=== PATIENT | female | born 1970 | race Caucasian/White ===

== ENCOUNTER 2016-12-12 08:15 | Emergency (ER) | payer BC ==
[2016-12-12 08:19] VITALS: RESP 18; O2SAT 99
--- NOTE | 2016-12-12 08:32 | CPEKG ---
Heart Rate: 80 RR Interval: 750 P-R Interval: 144 QRSD Interval: 86 QT Interval: 356 QTC Interval: 411 P York: 15 QRS York: 56 T Wave York: 15 EKG Severity - NORMAL ECG - EKG Impression: SINUS RHYTHM Electronically Signed By: Julio César Snyder 13-Dec-2016 14:23:03
[2016-12-12 08:41] LABS: % IMMATURE GRANULYOCYTES 0.2 % (0.0-1.1); ABSOLUTE IMMATURE GRANULOCYTES 0.02 10^3/uL (0.00-0.10); ADD DIFF? NO; ADD MORPH? NO; ADD SCAN? NO; ATYPICAL LYMPHOCYTE FLAG 10 (0-99); FRAGMENT RBC FLAG 0 (0-99); HEMATOCRIT 48.8 % (38.0-47.0); HEMOGLOBIN 15.6 g/dL (12.6-16.3); LEFT SHIFT FLG 0 (0-99); LIPEMIA HEMOLYSIS FLAG 80 (0-99); MEAN CELL HEMOGLOBIN 25.2 pg (27.9-34.1); MEAN CELL VOLUME 78.7 fL (81.5-99.8); MEAN PLATELET VOLUME 9.5 fL (8.7-11.7); PLATELET CLUMPS FLAG 0 (0-99); PLATELET COUNT 312 10^3/uL (150-400)
--- NOTE | 2016-12-12 08:42 | EDPHY ---
H & P Time Seen by Provider: 12/12/16 08:33 HPI/ROS: CHIEF COMPLAINT: arm pain/chest pain HISTORY OF PRESENT ILLNESS: The patient is a 46-year-old female who presents to the emergency department with sudden onset of sharp left arm pain radiating to her left chest. Patient states she was sitting at her desk approximately 1 0.5 hours ago. She moves her left arm and developed sharp stabbing pain on the medial aspect of her left arm. This radiated to her left breast. It was worse with movement. It would resolve with rest. If she does not move her arm she does not have pain. She denies any arm swelling or numbness. No weakness. No recent injury. The patient denies any leg pain or swelling. No recent travel. The patient is not on hormone replacement therapy. The patient does smoke. No cough or shortness of breath. REVIEW OF SYSTEMS: My complete review of systems is negative except as mentioned in the HPI. Past Medical/Surgical History: Includes toxic shock syndrome Smoking Status: Current every day smoker Physical Exam: Vitals noted GENERAL: Well-appearing, in no acute distress, alert. HEENT: Eyes normal to inspection, normal pharynx, no signs of dehydration. NECK: No thyromegaly, no lymphadenopathy, supple. RESPIRATORY: Clear to auscultation bilaterally, no rales, rhonchi or wheezing. CVS: Regular rate and rhythm, no rubs, murmurs, or gallops. ABDOMEN: Soft, nontender, nondistended, no organomegaly. BACK: Normal to inspection, no CVA tenderness. SKIN: Normal color, no rash, warm, dry. No pallor. EXTREMITIES: patient left arm appears normal. There is no swelling. Patient has mild tenderness to palpation over the medial aspect of her left brachium. She also has tenderness palpation over her left lateral pectoralis major. There is no lesions. No rash. Neurovascularly intact distally. No pedal edema, no calf tenderness, no Homans sign or cords, no joint swelling. NEURO/PSYCH: Alert and oriented x3, normal mood and affect, normal motor sensory exam. No obvious cranial nerve deficit. Constitutional: Initial Vital Signs Temperature (C) 36.3 C 12/12/16 08:17 Heart Rate 92 12/12/16 08:17 Respiratory Rate 18 12/12/16 08:17 Blood Pressure 121/87 H 12/12/16 08:17 O2 Sat (%) 99 12/12/16 08:17 O2 Delivery Mode Room Air Allergies/Adverse Reactions: codeine Allergy (Verified 12/12/16 08:16) Home Medications: Medication Instructions Recorded NK [No Known Home Meds] 12/12/16 Medical Decision Making - Diagnostics Imaging Results: Imaging Impressions Chest X-Ray 12/12/16 08:52 Impression: No evidence of acute cardiopulmonary abnormality. ED Course/Re-evaluation: In the emergency department I discussed possible etiologies with the patient. I answered her questions. IV was placed. Laboratory studies, EKG and ultrasound of her left upper extremity were ordered. Patient was given aspirin 324 mg orally. The patient denies pain at this time. EKG shows normal sinus rhythm, normal rate, normal axis, normal intervals. There are no ST or T-wave abnormalities. EKG is normal as interpreted by me. I reviewed the patient's laboratory studies. Her chemistry, CBC and troponin were negative. Ultrasound left upper extremity: No acute disease noted. Please refer the dictated report by Dr. Indra Nichols. 2022: I discussed the results with the patient. I answered all her questions. Patient's pain still is focused with left arm movement. I do not feel this represents cardiac disease, dissection, PE or clot. I discussed warnings with the patient. I gave her warnings prior to leaving. She will return with worsening symptoms. Differential Diagnosis: My differential includes but is not limited to ACS, acute MT, pneumonia, pneumothorax, DVT, PE - Data Points Laboratory Results: Laboratory Results 12/12/16 08:30 12/12/16 08:30 12/12/16 12/12/16 12/12/16 08:30 08:30 08:30 WBC 9.00 10^3/uL 10^3/uL (3.80-9.50) RBC 6.20 10^6/uL H 10^6/uL (4.18-5.33) Hgb 15.6 g/dL g/dL (12.6-16.3) Hct 48.8 % H % (38.0-47.0) MCV 78.7 fL L fL (81.5-99.8) MCH 25.2 pg L pg (27.9-34.1) MCHC 32.0 g/dL L g/dL (32.4-36.7) RDW 16.0 % H % (11.5-15.2) Plt Count 312 10^3/uL 10^3/uL (150-400) MPV 9.5 fL fL (8.7-11.7) Neut % (Auto) 65.8 % % (39.3-74.2) Lymph % (Auto) 23.4 % % (15.0-45.0) Crane % (Auto) 6.2 % % (4.5-13.0) Eos % (Auto) 3.6 % % (0.6-7.6) Baso % (Auto) 0.8 % % (0.3-1.7) Nucleat RBC Rel Count 0.0 % % (0.0-0.2) Absolute Neuts (auto) 5.92 10^3/uL 10^3/uL (1.70-6.50) Absolute Lymphs (auto) 2.11 10^3/uL 10^3/uL (1.00-3.00) Absolute Monos (auto) 0.56 10^3/uL 10^3/uL (0.30-0.80) Absolute Eos (auto) 0.32 10^3/uL 10^3/uL (0.03-0.40) Absolute Basos (auto) 0.07 10^3/uL 10^3/uL (0.02-0.10) Absolute Nucleated RBC 0.00 10^3/uL 10^3/uL (0-0.01) Immature Gran % 0.2 % % (0.0-1.1) Immature Gran # 0.02 10^3/uL 10^3/uL (0.00-0.10) Sodium 141 mEq/L mEq/L (134-144) Potassium 4.3 mEq/L mEq/L (3.5-5.2) Chloride 105 mEq/L mEq/L (97-110) Carbon Dioxide 25 mEq/l mEq/l (22-31) Anion Gap 11 mEq/L mEq/L (8-16) BUN 15 mg/dL mg/dL (7-23) Creatinine 0.7 mg/dL mg/dL (0.6-1.0) Estimated GFR > 60 Glucose 88 mg/dL mg/dL (70-100) Calcium 9.2 mg/dL mg/dL (8.5-10.4) Troponin I < 0.012 ng/mL ng/mL (0-0.034) Beta HCG, Qual NEGATIVE Medications Given: Discontinued Medications Aspirin (Aspirin) 324 mg PO EDNOW ONE Stop: 12/12/16 08:52 Last Admin: 12/12/16 08:53 Dose: 324 mg Departure - Departure Disposition: Home, Routine, Self-Care Clinical Impression: Left arm pain Chest pain Qualifiers: Chest pain type: unspecified Qualified Code(s): R07.9 - Chest pain, unspecified Condition: Good Instructions: Chest Pain (ED), Arm Pain (ED) Additional Instructions: Return with increasing pain, shortness of breath, fever or any other concerns. Referrals: Timur Garner MD [Primary Care Provider] - 5-7 days, call for appt.
[2016-12-12] MEDS ORDERED: ASPIRIN 81 MG CHEWABLE TAB ONE (08:50)
[2016-12-12] MEDS ORDERED: ASPIRIN 81 MG CHEWABLE TAB PO ONE (08:51)
[2016-12-12 09:00] LABS: ANION GAP 11 mEq/L (8-16); CALCIUM 9.2 mg/dL (8.5-10.4); CARBON DIOXIDE 25 mEq/l (22-31); CHLORIDE 105 mEq/L (97-110); CREATININE 0.7 mg/dL (0.6-1.0); GLOMERULAR FILTRATION RATE > 60; GLUCOSE 88 mg/dL (70-100); POTASSIUM 4.3 mEq/L (3.5-5.2); SODIUM 141 mEq/L (134-144)
[2016-12-12 09:11] LABS: TROPONIN I < 0.012 ng/mL (0-0.034)
[2016-12-12 11:17] VITALS: BP 133/76; PULSE 69; TEMP 98.2
== END 2016-12-12 11:17 | disposition home or self-care (01) ==
DX: R07.9 Chest pain, unspecified (principal); F17.200 Nicotine dependence, unspecified, uncomplicated; M79.602 Pain in left arm

== ENCOUNTER 2017-03-27 09:45 | Inpatient (IN) | payer BC ==
[~2017-03-27 09:45] MED LIST: ROPIVACAINE 0.2% 80 MG, EPINEPHrine 0.2 MG, KETOROLAC TROMETHAMINE 30 MG in BAG 0 ML IU ONE; TRANEXAMIC ACID 3,000 MG in NS 50 ML IRR ONE; TRANEXAMIC ACID 3,000 MG/50 ML BAG IRR ONE
[2017-03-27] MEDS ORDERED: ceFAZolin 2 GM/DEXTROSE 100 ML IV ONE (12:06)
[2017-03-27] MEDS ORDERED: DEXAMETHASONE 4 MG/ML VIAL IVP ONE (12:06)
[2017-03-27] MEDS ORDERED: FAMOTIDINE 20 MG TAB PO ONE (12:06)
[2017-03-27] MEDS ORDERED: ACETAMINOPHEN 325 MG TAB PO ONE (12:06)
[2017-03-27] MEDS ORDERED: LR 1,000 ML IV ONE (12:17)
--- NOTE | 2017-03-27 13:40 | PDANEPAE ---
ANE History of Present Illness 46 yo F w OA here for R BEVERLEY ANE Past Medical History - Cardiovascular History Hx Hypertension: No Hx Arrhythmias: No Hx Chest Pain: No Hx Coronary Artery / Peripheral Vascular Disease: No Hx CHF / Valvular Disease: No Hx Palpitations: No - Pulmonary History Hx COPD: No Hx Asthma/Reactive Airway Disease: No Hx Recent Upper Respiratory Infection: No Hx Oxygen in Use at Home: No Hx Sleep Apnea: No Sleep Apnea Screening Result - Last Documented: Negative - Neurologic History Hx Cerebrovascular Accident: No Hx Seizures: No Hx Dementia: No - Endocrine History Hx Diabetes: No Obesity: moderate - Renal History Hx Renal Disorders: No - Liver History Hx Hepatic Disorders: No - Neurological & Psychiatric Hx Hx Neurological and Psychiatric Disorders: No - Cancer History Hx Cancer: No - Congenital Disorder History Hx Congenital Disorders: No - GI History Hx Gastrointestinal Disorders: No - Other Health History Other Health History: wears contacts - Chronic Pain History Chronic Pain: Yes (right hip) - Surgical History Prior Surgeries: na ANE Review of Systems - Exercise capacity METS (RN): 4 METS - Systems Muscolosketal: Reports: joint pain ANE Patient History - Allergies Allergies/Adverse Reactions: codeine Allergy (Verified 02/26/17 11:41) Swelling/neck,face,throat - Home Medications Home medications: home medication list seen and reviewed Home Medications: Acetaminophen [Tylenol 325mg (*)] 325 mg PO DAILY PRN 02/21/17 [Last Taken 02/13] Naproxen Sodium [Aleve 220 MG (*)] 220 mg PO DAILY PRN 02/21/17 [Last Taken 07/21] celeCOXIB [Celebrex (*)] 200 mg PO DAILY 02/21/17 [Last Taken 03/26/17 19:00] HYDROcodone/APAP 10/325 [[place] 10/325 (*)] 1 tab PO Q8H PRN 03/27/17 [Last Taken 03/27/17 10:00] Multivitamins [Multivitamin (*)] 1 each PO DAILY 03/27/17 [Last Taken 03/26/17 06:00] - NPO status NPO Status: no food or drink >8 hours NPO Since - Liquids (Date): 03/26/17 NPO Since - Liquids (Time): 23:00 NPO Since - Solids (Date): 03/26/17 NPO Since - Solids (Time): 19:30 - Anes Hx Anes Hx: no prior problems - Smoking Hx Smoking Status: Current every day smoker - Family Anes Hx Family Anes Hx: none Family Hx Anesthesia Complications: none ANE Labs/Vital Signs - Vital Signs Blood Pressure: 110/86 Heart Rate: 92 Respiratory Rate: 15 O2 Sat (%): 96 Height: 154.94 cm Weight: 87.09 kg ANE Physical Exam - Airway Neck exam: FROM Mallampati Score: Class 2 Mouth exam: normal dental/mouth exam - Pulmonary Pulmonary: no respiratory distress, clear to auscultation - Cardiovascular Cardiovascular: regular rate and rhythym, no murmur, rub, or gallop - ASA Status ASA Status: II ANE Anesthesia Plan Anesthesia Plan: GA with mask Total IV Anesthesia: Yes
[2017-03-27] MEDS ORDERED: PROPOFOL/EMULSION 500 MG/50 ML BOTTLE IV ONE ×2 (14:16→14:58)
--- NOTE | 2017-03-27 14:39 | PDHPUP ---
History & Physical Update H&P update statement: This history and physical update is based on an assessment of the patient which was completed after admission or registration (within 24 hours), but prior to the surgery/procedure. H&P update: H&P reviewed & patient examined, no change in patient's condition since H&P completed
[2017-03-27] MEDS ORDERED: PHENYLEPHRINE HCL 100 MCG/ML SYR ONE (15:34)
[2017-03-27] MEDS ORDERED: PROPOFOL 200 MG/20 ML VIAL ONE (15:45)
[2017-03-27] MEDS ORDERED: MAGNESIUM HYDROXIDE 30 ML UDCUP PO PRN (16:10)
[2017-03-27] MEDS ORDERED: METOCLOPRAMIDE 10 MG/2 ML VIAL IVP PRN (16:10)
[2017-03-27] MEDS ORDERED: PROMETHAZINE HCL 25 MG SUPPR PR PRN (16:10)
[2017-03-27] MEDS ORDERED: diphenhydrAMINE 25 MG CAP PO PRN (16:10)
[2017-03-27] MEDS ORDERED: ONDANSETRON DISINTEGRATING 4 MG TAB PO PRN (16:10)
[2017-03-27] MEDS ORDERED: DIPHENOXYLATE/ATROPINE LOMOTIL 1 TAB PO PRN (16:10)
[2017-03-27] MEDS ORDERED: TEMAZEPAM 15 MG CAP PO PRN (16:10)
[2017-03-27] MEDS ORDERED: PROMETHAZINE HCL 25 MG/ML INJ IVP PRN (16:10)
[2017-03-27] MEDS ORDERED: LACTULOSE 20 GM/30 ML UDCUP PO PRN (16:10)
[2017-03-27] MEDS ORDERED: POLYETHYLENE GLYCOL 3350 17 GM PKT PO PRN (16:10)
[2017-03-27] MEDS ORDERED: BISACODYL 10 MG SUPP PR PRN (16:10)
[2017-03-27] MEDS ORDERED: CYCLOBENZAPRINE 10 MG TAB PO PRN (16:10)
[2017-03-27] MEDS ORDERED: ONDANSETRON 4 MG/2 ML VIAL IVP PRN ×2 (16:10→16:33)
--- NOTE | 2017-03-27 16:10 | POSTOPPROG ---
Post Op Note Date of Operation: 03/27/17 Surgeon: Jim Garcia Profiler Hand: tyler belcher Anesthesiologist: thuan Anesthesia: IV Sedation, Spinal Pre-op Diagnosis: R hip OA Post-op Diagnosis: R hip OA Indication: failed conservative therapies Procedure: R BEVERLEY Inf/Abcess present in the surg proc area at time of surgery?: No EBL: 50-100
[2017-03-27] MEDS ORDERED: HYDROmorphONE/DILAUDID 1 MG/ML SYR ONE ×2 (16:28→17:01)
[2017-03-27] MEDS: HYDROmorphONE/DILAUDID 1 MG/ML SYR IVP PRN ×4 (16:28→17:04)
[2017-03-27] MEDS ORDERED: LR 1,000 ML IV SCH (16:30)
[2017-03-27] MEDS ORDERED: NALOXONE HCL 0.4 MG/ML INJ IVP PRN (16:33)
[2017-03-27] MEDS ORDERED: fentaNYL 100 MCG/2 ML INJ IVP PRN (16:33)
--- NOTE | 2017-03-27 16:35 | POSTANESTH ---
Post Anesthetic Evaluation Cardiovascular Status: Normal, Stable, Similar to Pre-Op Cond Respiratory Status: Normal, Stable, Similar to Pre-op Cond. Level of Consciousness/Mental Status: Can Participate in Eval, Alert and Oriented Pain Control: Adequate, Prn Tx Ordered Nausea/Vomiting Control: Adequate, Prn Tx Ordered Complications Possibly Related to Anesthesia: None Noted
[2017-03-27] MEDS: oxyCODONE IR 5 MG TAB PO PRN ×2 (17:51→21:19)
[2017-03-27] MEDS: ACETAMINOPHEN 325 MG TAB PO SCH ×2 (17:51→22:58)
[2017-03-27] MEDS: FAMOTIDINE 20 MG TAB PO SCH (21:18)
[2017-03-27] MEDS: ASPIRIN 325 MG TAB PO SCH (21:18)
[2017-03-27] MEDS: ceFAZolin 2 GM/DEXTROSE 100 ML IV SCH (21:18)
[2017-03-27] MEDS: SENNOSIDES/DOCUSATE SODIUM TAB PO SCH (21:18)
[2017-03-28] MEDS: oxyCODONE IR 5 MG TAB PO PRN ×3 (01:04→09:05)
[2017-03-28 04:50] VITALS: RESP 18; TEMP 97.9
[2017-03-28] MEDS: ceFAZolin 2 GM/DEXTROSE 100 ML IV SCH (05:01)
[2017-03-28] MEDS: ACETAMINOPHEN 325 MG TAB PO SCH (05:02)
[2017-03-28 05:17] LABS: HEMATOCRIT 42.7 % (38.0-47.0); HEMOGLOBIN 13.6 g/dL (12.6-16.3)
[2017-03-28 07:35] VITALS: BP 84/64; PULSE 71; O2SAT 98
--- NOTE | 2017-03-28 08:30 | SOAPPROG ---
SOAP Progress Note Assessment/Plan: Assessment: Patient is doing well POD 1 s/p R BEVERLEY Pain management: pain is well controlled on oral pain meds. VTE ppx: recommend aspirin daily for 3 weeks, cont BLANK and SCDs Anemia: level is expected initially postop. Asymptomatic. Continue to monitor D/c planning: d/c to home today pending release from PT Plan: 03/28/17 08:29 Objective: Vital Signs Temp Pulse Resp BP Pulse Ox 36.6 C 71 18 84/64 L 98 03/28/17 07:33 03/28/17 07:33 03/28/17 07:33 03/28/17 07:33 03/28/17 07:33 Laboratory Results 03/28/17 05:07 03/27/17 03/28/17 03/29/17 05:59 05:59 05:59 Intake Total 3240 100 Output Total 850 Balance 2390 100 ICD10 Worksheet Patient Problems: Problems Problem Status Onset Osteoarthritis of right hip Acute - ICD10 Problem Qualifiers (1) Osteoarthritis of right hip Qualifiers: Osteoarthritis type: primary Qualified Code(s): M16.11 - Unilateral primary osteoarthritis, right hip
[2017-03-28] MEDS: SENNOSIDES/DOCUSATE SODIUM TAB PO SCH (09:05)
[2017-03-28] MEDS: ASPIRIN 325 MG TAB PO SCH (09:06)
[2017-03-28] MEDS: FAMOTIDINE 20 MG TAB PO SCH (09:06)
--- NOTE | 2017-03-28 11:20 | GOP ---
[f rep st] OPERATIVE REPORT DATE OF OPERATION: 03/27/2017 SURGEON: Tej Garcia MD MACHINE LEATHER TRIMMER: BRAYDEN Noyola. ANESTHESIA: Spinal. PREOPERATIVE DIAGNOSIS: Right hip osteoarthritis. POSTOPERATIVE DIAGNOSIS: Right hip osteoarthritis. PROCEDURE PERFORMED: Right total hip arthroplasty with x-ray. FINDINGS: ESTIMATED BLOOD LOSS: 200 cc. IMPLANTS: Accolade II size 2 at 127. Acetabular component is a 48 mm Tritanium. The liner is a Trident X3, 32 mm. The head is a Biolox Delta 32 mm , +4. INDICATIONS: The patient has progressively worsening arthritis of the hip which has failed medical management. The patient understands the treatment options including continued non-operative care and has selected surgical intervention. The patient has decided to undergo total hip arthroplasty via the direct anterior approach, understanding the risks of the procedure including , but not limited to, neurovascular injury, infection, persistent pain, component wear and loosening, deep venous thrombosis, pulmonary embolism, limb length inequality, hip instability (including dislocation), and intra-operative fractures. DESCRIPTION OF PROCEDURE: After proper identification of the patient including verification and marking the surgical site, the patient was brought to the operating room and placed in the supine position. All bony prominences were well padded. Anesthesia was induced without complication and intravenous prophylactic antibiotics were administered prior to skin incision. The operative leg was placed in the Trumpf Arch table extension and the well leg in a Yellofin leg rush. The patient was prepped and draped in the usual sterile fashion. The C-arm was draped for intra-operative fluoroscopy to check acetabular position, femoral component position including leg length and femoral offset. Attention was then drawn to surgical exposure of the hip. An incision was made with a #10 Bard Ishan blade starting 3 cm lateral and 3 cm distal to the anterior superior iliac spine measuring 8-10 cm and coursing distally toward the greater trochanter. The skin and subcutaneous tissues were divided sharply down to the fascia fatou. The fascia fatou was incised in line with the skin incision exposing the underlying tensor fascia fatou muscle. The muscle was bluntly elevated from the fascia and the first extracapsular Cobra retractor was placed laterally at the junction of the superior femoral neck and greater trochanter. The lateral femoral circumflex vessels were identified, cauterized , and divided with the AquamanSurface Tensions bipolar cautery. The deep investing fascia of the TFL was divided to allow proper mobilization of the muscle preventing damage during the retraction. The reflected head of the rectus femoris muscle was elevated off the anterior hip capsule and a medial Cobra retractor was placed just proximal to the lesser trochanter. The anterior capsulotomy was made sharply from the superolateral acetabulum to the saddle junction of the superior femoral neck and greater trochanter, then coursing inferomedial towards the lesser trochanter. The retractors were then placed in the intracapsular position for femoral neck osteotomy. Corresponding to pre-operative templating, the osteotomy was made with the oscillating saw carefully protecting the greater trochanter and soft tissues. The femoral head was removed from the acetabulum with a corkscrew and confirmed to be severely arthritic with exposed bone, deformity and osteophytes. Similar findings were confirmed in the acetabulum. The Arch table extension was then placed in 40 degrees external rotation. Attention was then drawn to the acetabular preparation. After placement of the anterior and posterior Cobra retractors outside the labrum and intracapsular, the circumferential labrum was removed sharply. The foveal contents were then removed and hemostasis obtained with cautery. The first reamer selected was sized using the removed femoral head. Reaming began with medialization and then commenced in 2 mm increments at 45 degrees of abduction and 15 degrees of anteversion using fluoroscopic navigation. Reaming ceased 1 mm less than the definitive acetabular component and corresponded to the pre-operative templating. The final acetabular component was inserted using fluoroscopy to achieve proper orientation yielding excellent purchase and stability in the acetabulum. The final acetabular liner was then placed and its seating confirmed. Attention was then turned to the femur. The Arch table extension was placed in extension and adduction, delivering the osteotomized femoral neck into the wound. A 2-pronged femoral elevator was placed at the calcar and another at the tip of the greater trochanter. The posterolateral capsule was released with cautery allowing mobilization of the femur lateral and anterior for preparation. The external rotators were visualized and preserved. A curette and rongeur were used to open the starting point for broaching. Serial broaching started with the #0 broach and ended with the broach that exhibited excellent fit in the proximal femur. A change in pitch during mallet strikes was accompanied by the inability to advance the broach any further. The trial reduction was performed and fluoroscopic navigation was utilized to check limb length. Adjustments were made to equalize limb length accordingly. After the final trials were accepted they were removed and the wound was copiously lavaged. The femoral component was seated to the same depth as the final broach and the femoral head was impacted onto the clean trunnion. The hip was then reduced for the final time and once more fluoroscopy was used to check that limb length equality was achieved. The wound was irrigated and closed in layers, the fascia fatou with 2-0 Quill, the subcutaneous tissue with 2-0 Quill, and the skin with Dermabond. Sterile dressings were applied. Final sharps and sponge counts were accurate. The patient was then transferred to a hospital bed and brought to the recovery room in stable condition. /[id number]/MODL MTDD
--- NOTE | 2017-04-01 03:52 | GDS ---
[f rep st] DISCHARGE SUMMARY ADMISSION DIAGNOSIS: Right hip osteoarthritis. DISCHARGE DIAGNOSIS: Right hip osteoarthritis. PROCEDURE: Right total hip arthroplasty. VTE PROPHYLAXIS: Full-strength aspirin x21 days. BRIEF DESCRIPTION OF HOSPITAL STAY: Patient was admitted for an elective joint arthroplasty. The p atient tolerated the procedure well and has passed physical therapy. The patient was given appropri ate antibiotic prophylaxis and venous thromboembolism prophylaxis. The patient's pain was well cont rolled on oral pain medication, patient was holding down food, and had urinated. Decision was made to discharge the patient. The patient was given post-operative prescriptions pre-operatively. PLAN: Please follow up with Dr. Garcia, as scheduled, on April 18, 2017. /[id number]/MODL
== END 2017-03-28 11:14 | disposition home or self-care (01) | DRG 470 ==
LOC: F3N 11:52
PROVIDERS: ADMIT Orthopaedic Surgery; ATTEND Orthopaedic Surgery
PROC: 0SR904A Replacement of Right Hip Joint with Ceramic on Polyethylene Synthetic Substitute, Uncemented, Open Approach (ICD-10-PCS; principal; 2017-03-27 14:15)
DX: M16.11 Unilateral primary osteoarthritis, right hip (principal); E66.09 Other obesity due to excess calories; Z68.36 Body mass index [BMI] 36.0-36.9, adult; F17.210 Nicotine dependence, cigarettes, uncomplicated
CPT/HCPCS: 97161-GP; 97165-GO; J0171; J0690; J1100; J1170; J1885; J2370; J2704; J2795

== ENCOUNTER 2017-04-27 11:27 | Observation (INO) | payer BC ==
--- NOTE | 2017-04-27 12:15 | EDPHY ---
H & P Smoking Status: Current every day smoker Time Seen by Provider: 04/27/17 11:55 HPI/ROS: CHIEF COMPLAINT: Right hip infection HISTORY OF PRESENT ILLNESS: 46-year-old female presents to the emergency department by private vehicle with her complaining of infection in her right hip. The patient had a right total hip arthroplasty on 03/27/[address] Richard Garcia. She was doing well up until just a few days ago she started having some pain and drainage associated with the incision. She was started on Keflex [address] Richard Garcia. She has been taking the antibiotic as prescribed. She talked with Dr. Richard Garcia this morning and the patient is scheduled to have surgery at 3:30 a.m. this afternoon. She states that her hip "otherwise feels great ". She denies pain in her ankle or her in her knee. She has felt feverish and chilled although has not taken any ibuprofen or Tylenol today. Last oral intake was last night. Her appetite has been normal. No diarrhea. No chest pain or difficulty breathing. REVIEW OF SYSTEMS: Constitutional: Subjective fevers and chills Eyes: No double or blurry vision. ENT: No sore throat. Respiratory: No cough, no shortness of breath. Cardiac: No chest pain. Gastrointestinal: No abdominal pain, vomiting or diarrhea. Genitourinary: No dysuria. Musculoskeletal: No neck or back pain. Skin: No rashes. Neurological: No headache. (Ailyn Varma) Past Medical/Surgical History: Right hip replacement 03/27/2017 (Ailyn Varma) Social History: and lives in [place] (Ailyn Varma) Physical Exam: General Appearance: Alert, no distress. Afebrile temperature 36.9degrees. No apparent distress. at bedside. Eyes: Pupils equal and round. Extraocular motions are all intact. ENT: Mouth: Mucous membranes moist. Respiratory: No wheezing, rhonchi, or rales, lungs are clear to auscultation. Cardiovascular: Regular rate and rhythm. Gastrointestinal: Abdomen is soft and nontender, no masses, no rebound or guarding, bowel sounds normal. Neurological: Alert and oriented x 3, cranial nerves II through XII grossly intact Skin: Right anterior hip reveals large surgical incision with most proximal aspect with redness and warmth. Very tender to palpate. There is purulent drainage noted at the proximal aspect incision. Wound culture obtained. Warm and dry, no rashes. Musculoskeletal: Nontender to palpate along the cervical, thoracic or lumbar spine. Neck is supple. Extremities: Full range of motion and no peripheral edema. No pain with external or internal rotation of the right hip. Full range of motion of the right hip without pain or difficulty. No palpable inguinal lymphadenopathy on the right. Psychiatric: Patient is oriented X 3, there is no agitation. (Ailyn Varma) Constitutional: Initial Vital Signs Temperature (C) 36.9 C 04/27/17 11:33 Heart Rate 100 04/27/17 11:33 Respiratory Rate 18 04/27/17 11:33 Blood Pressure 145/84 H 04/27/17 11:33 O2 Sat (%) 98 04/27/17 11:33 O2 Delivery Mode Room Air Allergies/Adverse Reactions: codeine Allergy (Verified 04/27/17 11:31) Swelling/neck,face,throat Home Medications: Medication Instructions Recorded Acetaminophen [Tylenol 325mg (*)] 325 - 350 mg PO Q6 04/27/17 Cephalexin [Cephalexin] 500 mg PO Q6H 04/27/17 Medical Decision Making ED Course/Re-evaluation: 46-year-old female with recent right total hip arthroscopy. Patient has infection associated with incision to the right hip. The purulent drainage was cultured. Laboratory studies were drawn. Lactate was normal at 1.3. Blood cultures are drawn. The patient is scheduled to have surgery with Dr. Richard Garcia at 3:30 a.m. this afternoon. The patient was kept NPO. She was given morphine for pain. (Ailyn Varma) I did not see this patient while she was in the emergency department. However her care was discussed with the PA while the patient was in the department. I agree with the plan and management (Weston Ahumada) Differential Diagnosis: Including but not limited to cellulitis, septic arthritis, sepsis, wound dehiscence (Ailyn Varma) - Data Points Laboratory Results: Laboratory Results 04/27/17 11:48 04/27/17 11:48 Microbiology Results: MICROBIOLOGY 04/27/17 12:00 Hip - Swab Gram Stain - Final Medications Given: Acetaminophen (Tylenol) 650 mg PO Q6HRS [facility] Stop: 10/24/17 17:59 Last Admin: 04/28/17 05:09 Dose: 650 mg Aspirin (Aspirin) 325 mg PO DAILY [facility] Stop: 10/24/17 20:59 Last Admin: 04/27/17 21:23 Dose: 325 mg Cyclobenzaprine HCl (Flexeril) 10 mg PO Q8HRS PRN PRN Reason: Muscle Spasms Stop: 10/24/17 16:47 Last Admin: 04/27/17 21:24 Dose: 10 mg Famotidine (Pepcid) 20 mg PO BID [facility] Stop: 10/24/17 20:59 Last Admin: 04/27/17 21:24 Dose: 20 mg Cefazolin Sodium/Dextrose (Ancef 2 Gm (Premix)) 100 mls @ 200 mls/hr IV Q8H [facility] PRN Reason: Protocol Stop: 04/28/17 08:29 Last Admin: 04/27/17 23:15 Dose: 100 mls Ondansetron HCl (Zofran) 4 mg IVP Q4HRS PRN PRN Reason: Nausea/Vomiting, Can't Take PO Stop: 10/24/17 16:47 Last Admin: 04/27/17 18:04 Dose: 4 mg Oxycodone HCl (Oxycodone Ir) 5 - 10 mg PO Q3HRS PRN PRN Reason: Breakthrough pain Stop: 05/07/17 16:47 Last Admin: 04/28/17 05:09 Dose: 10 mg Promethazine HCl (Phenergan) 12.5 mg IVP Q4HRS PRN PRN Reason: Nausea/Vomiting, Can't Take PO Stop: 10/24/17 16:47 Last Admin: 04/27/17 18:27 Dose: 12.5 mg Senna/Docusate Sodium (Senokot-S) 1 - 2 tab PO BID [facility] PRN Reason: Protocol Stop: 10/24/17 20:59 Last Admin: 04/27/17 21:24 Dose: 2 tab Discontinued Medications Bupivacaine HCl/Epinephrine Bitart (Bupivacaine/Epi) Confirm Administered Dose 30 ml .ROUTE .STK-MED ONE Stop: 04/27/17 16:12 Last Admin: 04/27/17 16:33 Dose: 30 ml Fentanyl (Sublimaze) 25 - 100 mcg IVP Q5M PRN PRN Reason: PACU, IMMEDIATE Pain control Stop: 04/27/17 17:50 Last Admin: 04/27/17 17:02 Dose: 50 mcg Povidone Iodine 20 ml/ Sodium (Chloride) 520 mls @ 0 mls/hr IRR ONCALL ONE PRN Reason: As Directed Stop: 04/27/17 15:32 Last Admin: 04/27/17 14:18 Dose: 520 mls Cefazolin Sodium/Dextrose (Ancef 2 Gm (Premix)) 100 mls @ 200 mls/hr IV ONCALL ONE PRN Reason: Protocol Stop: 04/27/17 16:00 Last Admin: 04/27/17 15:55 Dose: 100 mls Morphine Sulfate (Morphine) 4 mg IVP EDNOW ONE Stop: 04/27/17 14:38 Last Admin: 04/27/17 14:43 Dose: 4 mg Departure - Departure Disposition: To OP Cath/Surgery Clinical Impression: Cellulitis of right hip Condition: Good
[2017-04-27 12:23] LABS: % IMMATURE GRANULYOCYTES 0.2 % (0.0-1.1); ABSOLUTE IMMATURE GRANULOCYTES 0.02 10^3/uL (0.00-0.10); ADD DIFF? NO; ADD MORPH? NO; ADD SCAN? NO; ATYPICAL LYMPHOCYTE FLAG 0 (0-99); FRAGMENT RBC FLAG 0 (0-99); HEMATOCRIT 51.8 % (38.0-47.0); HEMOGLOBIN 16.3 g/dL (12.6-16.3); LEFT SHIFT FLG 0 (0-99); LIPEMIA HEMOLYSIS FLAG 80 (0-99); MEAN CELL HEMOGLOBIN CONCENTR. 31.5 g/dL (32.4-36.7); MEAN CELL VOLUME 79.3 fL (81.5-99.8); PLATELET CLUMPS FLAG 0 (0-99); PLATELET COUNT 400 10^3/uL (150-400); RED BLOOD CELL COUNT 6.53 10^6/uL (4.18-5.33); RED CELL DISTRIBUTION WIDTH 17.2 % (11.5-15.2)
[2017-04-27 12:28] LABS: ANION GAP 13 mEq/L (8-16); CALCIUM 9.5 mg/dL (8.5-10.4); CARBON DIOXIDE 25 mEq/l (22-31); CHLORIDE 103 mEq/L (97-110); CREATININE 0.7 mg/dL (0.6-1.0); GLOMERULAR FILTRATION RATE > 60; GLUCOSE 97 mg/dL (70-100); POTASSIUM 4.1 mEq/L (3.5-5.2); SODIUM 141 mEq/L (134-144)
[2017-04-27] MEDS ORDERED: CEFAZOLIN 1 GM/DEXTROSE/50 ML BAG IV ONE ×2 (15:27→15:35)
[2017-04-27] MEDS ORDERED: POVIDONE-IODINE 20 ML in SODIUM CL IRRIG SOLUTION 500 ML IRR ONE (15:31)
[2017-04-27] MEDS ORDERED: ceFAZolin 2 GM/DEXTROSE 100 ML IV ONE (15:31)
[2017-04-27 15:44] LABS: HEMATOCRIT 53.8 % (38.0-47.0)
[2017-04-27] MEDS ORDERED: fentaNYL 100 MCG/2 ML INJ ONE ×2 (15:54→17:00)
[2017-04-27] MEDS ORDERED: MIDAZOLAM 2 MG/2 ML VIAL ONE (15:54)
[2017-04-27] MEDS ORDERED: PROPOFOL 200 MG/20 ML VIAL ONE (15:54)
--- NOTE | 2017-04-27 15:57 | GHP ---
[f rep st] HISTORY AND PHYSICAL DATE OF ADMISSION: 04/27/2017 CHIEF COMPLAINT: Draining right hip incision. HISTORY OF PRESENT ILLNESS: The patient is a 46-year-old female who underwent a right total hip arth roplasty approximately 1 month ago. The patient has a complaint of a draining incision. Was doing w ell on Saturday when seen in clinic. On , when seen in clinic, had developed cellulitis and w as started on antibiotics. Has had increased drainage, although decreased erythema. The patient den ies feeling febrile. She was advised to come in for irrigation and debridement. Denies any other pa in or issues. PAST MEDICAL HISTORY: Noncontributory. MEDICATIONS: The patient is taking Keflex. PHYSICAL EXAMINATION: GENERAL: The patient is in no acute distress. Pleasant and cooperative with exam. EXTREMITIES: The right lower extremity is examined. She has erythema, induration, and a smal l area of drainage. LABORATORY DATA: Labs obtained today show a white count of 9.1 without a left shift. Lactic acid is 1.3. Remaining labs are normal. We will also add blood cultures and obtain an ESR and CRP. ASSESSMENT AND PLAN: At this time, we will plan for irrigation and debridement of right hip, possibl e revision if it is a deep infection rather than a superficial infection. The patient did express un derstanding and informed consent was obtained. She will admitted to the Orthopedic Service. /[id number]/MODL
[2017-04-27] MEDS ORDERED: METOCLOPRAMIDE 10 MG/2 ML VIAL ONE (16:08)
[2017-04-27] MEDS ORDERED: ONDANSETRON 4 MG/2 ML VIAL ONE (16:08)
[2017-04-27] MEDS ORDERED: BUPIVACAINE/EPI 0.5% 30 ML SDV ONE (16:11)
--- NOTE | 2017-04-27 16:18 | PDANEPAE ---
ANE Past Medical History - Cardiovascular History Hx Hypertension: No Hx Arrhythmias: No Hx Chest Pain: No Hx Coronary Artery / Peripheral Vascular Disease: No Hx CHF / Valvular Disease: No Hx Palpitations: No - Pulmonary History Hx COPD: No Hx Asthma/Reactive Airway Disease: No Hx Recent Upper Respiratory Infection: No Hx Oxygen in Use at Home: No Hx Sleep Apnea: No - Neurologic History Hx Cerebrovascular Accident: No Hx Seizures: No Hx Dementia: No - Endocrine History Hx Diabetes: No - Renal History Hx Renal Disorders: No - Liver History Hx Hepatic Disorders: No - Neurological & Psychiatric Hx Hx Neurological and Psychiatric Disorders: No - Cancer History Hx Cancer: No - Congenital Disorder History Hx Congenital Disorders: No - GI History Hx Gastrointestinal Disorders: No - Other Health History Other Health History: wears contacts - Chronic Pain History Chronic Pain: Yes (right hip) - Surgical History Prior Surgeries: na ANE Review of Systems Review of Systems: ANE Patient History - Allergies Allergies/Adverse Reactions: codeine Allergy (Verified 04/27/17 11:31) Swelling/neck,face,throat - Home Medications Home Medications: Keflex 04/27/17 [Last Taken Unknown] - NPO status NPO Since - Liquids (Date): 04/27/17 NPO Since - Liquids (Time): 08:30 NPO Since - Solids (Date): 04/26/17 NPO Since - Solids (Time): 20:00 - Smoking Hx Smoking Status: Current every day smoker - Family Anes Hx Family Hx Anesthesia Complications: none ANE Labs/Vital Signs - Labs Result Diagrams: 04/27/17 11:48 04/27/17 11:48 - Vital Signs Blood Pressure: 135/95 Heart Rate: 85 Respiratory Rate: 16 O2 Sat (%): 95 Height: 157.48 cm Weight: 86.183 kg ANE Physical Exam - Airway Mallampati Score: Class 2 Mouth exam: normal dental/mouth exam - ASA Status ASA Status: II, E
[2017-04-27] MEDS ORDERED: PROMETHAZINE HCL 25 MG SUPPR PR PRN (16:48)
[2017-04-27] MEDS ORDERED: ONDANSETRON 4 MG/2 ML VIAL IVP PRN (16:48)
[2017-04-27] MEDS ORDERED: METOCLOPRAMIDE 10 MG/2 ML VIAL IVP PRN (16:48)
[2017-04-27] MEDS ORDERED: TEMAZEPAM 15 MG CAP PO PRN (16:48)
[2017-04-27] MEDS ORDERED: ONDANSETRON DISINTEGRATING 4 MG TAB PO PRN (16:48)
[2017-04-27] MEDS ORDERED: DIPHENOXYLATE/ATROPINE LOMOTIL 1 TAB PO PRN (16:48)
[2017-04-27] MEDS ORDERED: BISACODYL 10 MG SUPP PR PRN (16:48)
[2017-04-27] MEDS ORDERED: POLYETHYLENE GLYCOL 3350 17 GM PKT PO PRN (16:48)
[2017-04-27] MEDS ORDERED: PROMETHAZINE HCL 25 MG/ML INJ IVP PRN ×2 (16:48→16:49)
[2017-04-27] MEDS ORDERED: LACTULOSE 20 GM/30 ML UDCUP PO PRN (16:48)
[2017-04-27] MEDS ORDERED: CYCLOBENZAPRINE 10 MG TAB PO PRN (16:48)
[2017-04-27] MEDS ORDERED: diphenhydrAMINE 25 MG CAP PO PRN (16:48)
[2017-04-27] MEDS ORDERED: MAGNESIUM HYDROXIDE 30 ML UDCUP PO PRN (16:48)
--- NOTE | 2017-04-27 16:48 | POSTOPPROG ---
Post Op Note Date of Operation: 04/27/17 Surgeon: Jim Garcia Private Investigator Surveillance: henri Anesthesiologist: Ruperto Anesthesia: GET(General Endotracheal) Pre-op Diagnosis: R hip infection Post-op Diagnosis: right hip superfiscial infection Indication: draining incision Procedure: I&D with scar revision R hip Findings: superfiscial infection Inf/Abcess present in the surg proc area at time of surgery?: Yes Depth: Superfical (Skin SQ) EBL: Minimal
[2017-04-27] MEDS ORDERED: fentaNYL 100 MCG/2 ML INJ IVP PRN (16:49)
[2017-04-27] MEDS ORDERED: DEXAMETHASONE 4 MG/ML VIAL IVP PRN (16:49)
[2017-04-27] MEDS ORDERED: LR 500 ML IV PRN (16:49)
[2017-04-27] MEDS ORDERED: MEPERIDINE 25 MG/ML SYR IVP PRN (16:49)
[2017-04-27] MEDS ORDERED: NALOXONE HCL 0.4 MG/ML INJ IVP PRN (16:49)
[2017-04-27] MEDS ORDERED: ALBUTEROL 3 ML DEYVIAL IH PRN (16:49)
--- NOTE | 2017-04-27 16:52 | POSTANESTH ---
Post Anesthetic Evaluation Cardiovascular Status: Normal, Stable Respiratory Status: Normal, Stable Level of Consciousness/Mental Status: Can Participate in Eval Pain Control: Adequate, Prn Tx Ordered Nausea/Vomiting Control: Adequate, Prn Tx Ordered Complications Possibly Related to Anesthesia: None Noted
[2017-04-27] MEDS ORDERED: LR 1,000 ML IV SCH ×2 (17:00)
--- NOTE | 2017-04-27 17:51 | GOP ---
[f rep st] OPERATIVE REPORT DATE OF OPERATION: 04/27/2017 SURGEON: Tej Garcia MD ANESTHESIA: General. PREOPERATIVE DIAGNOSIS: Right hip draining incision. POSTOPERATIVE DIAGNOSIS: Right hip draining incision, superficial infection. PROCEDURE PERFORMED: Right hip irrigation and debridement with scar revision. FINDINGS: INDICATIONS: Patient is a 46-year-old female who underwent a right total hip arthroplasty michael amarilys 1 month ago and had a small area of persistent non-healing. It appeared to be scabbed over and t hen this area started to drain in the last couple days. Had some cellulitis and drainage was persist ent. Decision was made to proceed with exploration and irrigation and debridement with scar revision . Patient expressed understanding, and informed consent was obtained. DESCRIPTION OF PROCEDURE: The patient was identified in the preoperative holding area. Her right lo wer extremity was marked. She was then brought back to the operating room. After induction of anest hesia, she was positioned on the arch table. She was then prepped and draped in the usual sterile fa shion. A time-out was taken, confirming patient laterality, procedure, antibiotic status, and implan ts were available if needed. We then proceeded with excision of the scar. We explored the soft tiss ue underneath. There was no pocket of infection or abscess deep. We were able to dissect down to th e fascia and used a spinal needle to aspirate into the hip joint, and no fluid was able to be withdra wn. At this time, copiously irrigated with Betadine solution as well as normal saline. The incision was closed with nylon suture. Patient has been placed into a sterile dressing and taken to PACU in good condition with well-perfused limb. The plan is to admit the patient for observation overnight. She will be given IV antibiotics and the n discharged to home. Currently, her white count is 9.9, her CRP is 5.3, and her ESR is 6; so very l ow likelihood of deep infection with those lab values. /[id number]/MODL
[2017-04-27] MEDS: ACETAMINOPHEN 325 MG TAB PO SCH ×2 (19:42→23:15)
[2017-04-27] MEDS: ASPIRIN 325 MG TAB PO SCH (21:23)
[2017-04-27] MEDS: FAMOTIDINE 20 MG TAB PO SCH (21:24)
[2017-04-27] MEDS: oxyCODONE IR 5 MG TAB PO PRN (21:24)
[2017-04-27] MEDS: SENNOSIDES/DOCUSATE SODIUM TAB PO SCH (21:24)
[2017-04-27] MEDS: ceFAZolin 2 GM/DEXTROSE 100 ML IV SCH (23:15)
[2017-04-28 04:27] VITALS: RESP 16
[2017-04-28 04:30] LABS: HEMATOCRIT 39.7 % (38.0-47.0); HEMOGLOBIN 12.7 g/dL (12.6-16.3)
[2017-04-28] MEDS: ACETAMINOPHEN 325 MG TAB PO SCH (05:09)
[2017-04-28] MEDS: oxyCODONE IR 5 MG TAB PO PRN (05:09)
[2017-04-28 07:14] VITALS: BP 108/68; PULSE 79; TEMP 98.4; O2SAT 93
[2017-04-28] MEDS: ceFAZolin 2 GM/DEXTROSE 100 ML IV SCH (08:36)
[2017-04-28] MEDS: FAMOTIDINE 20 MG TAB PO SCH (08:37)
[2017-04-28] MEDS: ASPIRIN 325 MG TAB PO SCH (08:38)
[2017-04-28] MEDS: SENNOSIDES/DOCUSATE SODIUM TAB PO SCH (08:42)
--- NOTE | 2017-04-28 11:36 | SOAPPROG ---
SOVARSHA Progress Note Assessment/Plan: Assessment: pt doing well s/pI&D with scar revision MSSA cont keflex d/c home f/u tomorrow as scheduled Plan: 04/28/17 11:35 Objective: Vital Signs Temp Pulse Resp BP Pulse Ox 36.9 C 79 16 108/68 93 04/28/17 07:11 04/28/17 07:11 04/28/17 07:11 04/28/17 07:11 04/28/17 07:11 Laboratory Results 04/28/17 04:16 04/27/17 04/28/17 04/29/17 05:59 05:59 05:59 Intake Total 2229 Output Total 900 Balance 1329 ICD10 Worksheet Patient Problems: Problems Problem Status Onset Cellulitis of right hip Acute Osteoarthritis of right hip Acute
[2017-04-28] MEDS ORDERED: CEPHALEXIN 500 MG CAP PO SCH (11:45)
--- NOTE | 2017-04-28 11:50 | ASMTCMCOM ---
CM Note CM Note Notes: Reviewed chart and spoke w/RN. Pt will dc home w/supportive family, no CM needs. Date Signed: 04/28/2017 11:49 AM Electronically Signed By:Melida Bradley RN
--- NOTE | 2017-04-28 12:04 | ASDISCHSUM ---
Discharge Information Plan Status:Home with No Needs Medically Cleared to Leave: Discharge Date:04/28/2017 11:45 AM CM D/C Disposition:Home, Routine, Self-Care ADT D/C Disposition:Home, Routine, Self-Care Projected Discharge Date:04/28/2017 11:45 AM Transportation at D/C: Discharge Delay Reason: Follow-Up Date:04/28/2017 11:45 AM Discharge Slot: Final Diagnosis: Placement Information Patient Contact Information Contact Name:GABI Relationship: Address:[address] [place] [address] JARRED GARCIA Hartley Work Phone: City:[facility] Phone: [facility]/Zip Code:[place] [address] Email: Financial Information Financial Class:HMO and PPO Plans Primary Plan Desc: OUT OF STATE PPO Primary Plan Number:[id number] Secondary Plan Desc: Secondary Plan Number: Assessment Information [facility] CM Progress Note CM Note CM Note Notes: Reviewed chart and spoke w/RN. Pt will dc home w/supportive family, no CM needs. Date Signed: 04/28/2017 11:49 AM Electronically Signed By:Melida Bradley RN Intervention Information
== END 2017-04-28 11:45 | disposition home or self-care (01) ==
LOC: FSGY 14:57 → INTOOBSV 15:48 → F3N 15:48
PROVIDERS: ADMIT Orthopaedic Surgery; ATTEND Orthopaedic Surgery
PROC: 0HQBXZZ Repair Right Upper Arm Skin, External Approach (ICD-10-PCS; principal; 2017-04-27 15:30)
DX: L03.115 Cellulitis of right lower limb (principal); T81.4XXA Infection following a procedure, initial encounter; Z96.641 Presence of right artificial hip joint
CPT/HCPCS: 10180; G0378; 96374; J0690; J2250; J2405; J2550; J2704; J2765; J3010

== ENCOUNTER → 2017-09-13 | Outpatient (CLI) | payer BC | LOC: FIMAGING 14:51 | PROVIDERS: ATTEND Internal Medicine | DX: N63.10 Unspecified lump in the right breast, unspecified quadrant (principal); N64.4 Mastodynia ==

== ENCOUNTER → 2017-09-30 | Outpatient (CLI) | payer BC ==
[~2017-09-30] MED LIST changes: +IOPAMIDOL (ISOVUE 370) 100 ML BTL IV ONE; -ROPIVACAINE 0.2% 80 MG, EPINEPHrine 0.2 MG, KETOROLAC TROMETHAMINE 30 MG in BAG 0 ML IU ONE; -TRANEXAMIC ACID 3,000 MG in NS 50 ML IRR ONE; -TRANEXAMIC ACID 3,000 MG/50 ML BAG IRR ONE
== END ==
LOC: FIMAGING 15:15
PROVIDERS: ATTEND Psychiatry & Neurology Neurology
DX: R93.0 Abnormal findings on diagnostic imaging of skull and head, not elsewhere classified (principal); I77.9 Disorder of arteries and arterioles, unspecified
CPT/HCPCS: Q9967

== ENCOUNTER 2017-10-08 15:21 | Emergency (ER) | payer BC ==
--- NOTE | 2017-10-08 15:41 | EDPHY ---
H & P Time Seen by Provider: 10/08/17 15:41 HPI/ROS: CHIEF COMPLAINT: Left arm tingling HISTORY OF PRESENT ILLNESS: Patient had dizziness and had an MRI of her brain on August 30 that showed apparently some subcortical white matter hyperintense regions. Because of this abnormality she had an MRI of her cervical spine on which showed severe central canal stenosis with left foraminal stenosis at C4-5 and C5-6. She saw a neurosurgeon Dr. Cassidy last week in the office but she did not have any neurologic symptoms in her arms, and she was told that this was not a surgical problem currently. Today the patient is up with 3 days of a headache. She does have headaches and this is a typical type of headache for her but it has lasted for 3 days which is a little longer than usual. She also complains of waking up today at 5:30 a.m. With some tingling and numbness in her left arm. She went last night to sleep at 10:30 p.m. On her arm felt fine. 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 She presents with tingling and numbness in her left arm which is not associated with weakness. No skin rash or fever. Not better worse with anything. The tingling and numbness does not radiate in any particular pattern. REVIEW OF SYSTEMS: Eye: no change in vision ENT: no sore throat Cardiac: no chest pain or syncope Pulmonary: no cough or SOB Abdomen: no vomiting, diarrhea, abdominal pain Musculoskeletal: Denies neck pain Skin: no rash Neuro: HPI Constitutional: no fever : no urinary symptoms A comprehensive 10 point review of systems is otherwise negative aside from elements mentioned in the history of present illness. PAST MEDICAL HISTORY: Right hip replacement, toxic shock at age 17. 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 Eyes: No scleral icterus. Extraocular motion intact. ENT, Mouth: Normal mucous membranes. Respiratory: Normal respiratory effort, breath sounds equal, lungs are clear to auscultation. Cardiovascular: Regular rate and rhythm. Gastrointestinal: Abdomen is soft and non tender. Neurological: Alert, face symmetric, normal motor and sensory in extremities. The patient has 5/5 strength in deltoids, biceps, triceps, wrist extensor, and intrinsics bilaterally. She has sensation in her left upper extremity preserved to hot and cold, pinprick and soft touch, proprioception also preserved. 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 Skin: Warm and dry, no rashes. Musculoskeletal: No peripheral edema. Normal range of motion of the patient's neck, no meningeal signs. Psychiatric: Not agitated. Emergency Department course/MDM: Consultation with her neurosurgical group; discussed with Lazara who recommends oral steroids and outpatient follow-up. Discussed with her neurologist Dr. Frey at [phone], who recommends MRI diffusion-weighted with discharge if no evidence of new stroke, admission if she does have new central abnormality. 1840: MRI discussed with Dr. Fuller, appears stable from August 30, white matter abnormalities; diagnosis possibly previous small strokes, or even multiple sclerosis. Nothing new seen on MRI scan today. Plan for steroid taper and neurosurgery and neurology follow-up as an outpatient. Results discussed with the patient including possibility of multiple sclerosis mention by radiologist based on MRI. Steroids as recommended by Neurosurgery discussed and consented. Smoking Status: Current every day smoker Constitutional: Initial Vital Signs Temperature (C) 37.1 C 10/08/17 15:23 Heart Rate 98 10/08/17 15:23 Respiratory Rate 18 10/08/17 15:23 Blood Pressure 151/88 H 10/08/17 15:23 O2 Sat (%) 96 10/08/17 15:23 O2 Delivery Mode Room Air Allergies/Adverse Reactions: No Known Allergies Allergy (Unverified 10/08/17 15:26) Home Medications: Medication Instructions Recorded Aspirin 81mg (*) 10/08/17 methylPREDNISolone [Medrol Dose 1 each PO AD #1 ea 10/08/17 Aidan] Medical Decision Making - Diagnostics Imaging Results: Imaging Impressions Brain MRI 10/08/17 16:10 Impression: 1. Stable white matter plaques as detailed above. Findings can be seen with multiple sclerosis. Other possibilities include post-infectious/post- inflammatory sequela, atypical demyelinating disease, or migraine-related sequela. If symptoms worsen, additional imaging may be necessary. Findings discussed with Isaias Rosales M.D. at 18:39 hour, 10/08/2017. Differential Diagnosis: Differential considered including but not limited to stroke, vasculitis, demyelinating disorder, spinal cord or nerve root compression, LAYOUT OPERATOR infection. Consult/Admit Bed Type: Lazara 1607, Shante 1611 Departure - Departure Disposition: Home, Routine, Self-Care Clinical Impression: Arm paresthesia, left Condition: Good Instructions: Paresthesia (ED) Additional Instructions: Please return if you get worsening numbness or any decrease in strength or sensation in that left arm or other new neurologic symptoms. MRI stable from August 30, no new changes seen per the radiologist. Steroid taper as recommended by Neurosurgery. Please see them in the office next week. Please follow-up with your neurologist later this week. Referrals: Timur Garner MD [Primary Care Provider] - As per Instructions Romario Cassidy MD [Medical Doctor] - As per Instructions Eloise Frey DO [Non Staff and Non MD] - As per Instructions Prescriptions: methylPREDNISolone [Medrol Dose Aidan] 1 each PO AD #1 ea
[2017-10-08 19:00] VITALS: BP 142/91; PULSE 81; RESP 14; TEMP 97.7; O2SAT 97
== END 2017-10-08 19:00 | disposition home or self-care (01) ==
DX: R20.2 Paresthesia of skin (principal); F17.200 Nicotine dependence, unspecified, uncomplicated; Z79.82 Long term (current) use of aspirin

== ENCOUNTER → 2017-10-10 | Outpatient (CLI) | payer BC ==
[~2017-10-10] MED LIST changes: +GADOBUTROL 10 ML VIAL IVP ONE; -IOPAMIDOL (ISOVUE 370) 100 ML BTL IV ONE
== END ==
LOC: FIMAGING 08:03
PROVIDERS: ATTEND Internal Medicine
DX: N63.10 Unspecified lump in the right breast, unspecified quadrant (principal)
CPT/HCPCS: 0159T; A9585; C8908

== ENCOUNTER 2017-10-22 09:36 | Day surgery (SDC) | payer BC ==
[2017-10-22] MEDS ORDERED: NS 500 ML IV ONE (09:41)
[2017-10-22] MEDS ORDERED: BENZOCAINE UNIT DOSE SPRAY HURRICAINE MM ONE (09:41)
[2017-10-22] MEDS ORDERED: fentaNYL 100 MCG/2 ML INJ IVP ONE (09:41)
[2017-10-22] MEDS ORDERED: MIDAZOLAM 2 MG/2 ML VIAL IVP ONE (09:41)
--- NOTE | 2017-10-22 11:16 | PDGENHP ---
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 Echocaridogram demonstrated thickening of aortic valve. She presents today for HUSSAIN for further evaluation of cardiac source of MRI findings. Pertinent Past, Social, Family History: PMH: Asthma, Tobacco use, Osteoarthritis , Carpal Tunnel. PSH: Right Hip replacement, Carpal tunnel release. 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 Family : No hx of neurologic disorders Relevant Physical Exam: Awake, Alert, Appriopriate. CTAB. S1/S2 RRR. No edema
[2017-10-22] MEDS ORDERED: LIDOCAINE 2% 5 ML SDV ONE (11:22)
[2017-10-22] MEDS ORDERED: PROPOFOL/EMULSION 500 MG/50 ML BOTTLE IV ONE (11:22)
[2017-10-22] MEDS ORDERED: IPRATROPIUM/ALBUTEROL 3 ML DEYVIAL ONE (11:56)
--- NOTE | 2017-10-22 13:35 | CPR ---
[f rep st] NONINVASIVE CARDIAC PROCEDURE REPORT DATE OF PROCEDURE: 10/22/2017 PROCEDURE PERFORMED: Transesophageal echocardiogram. INDICATIONS: Thickening of the aortic valve on transthoracic echocardiogram. Evidence of white dinesh er changes on MRI of the brain. 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 DESCRIPTION OF PROCEDURE: The patient was brought to the cardiac CVC lab. She signed consent for xiomy th anesthesia and HUSSAIN procedure. With the assistance of anesthesia, patient was sedated. A HUSSAIN prob e was passed without incident. Images were obtained of all cardiac structures. Primary focus on aor tic and mitral valves. Aortic valve was trileaflet and normal appearance with no evidence of aortic stenosis or aortic insufficiency. Aortic valve did not appear thickened. Mitral valve structure and function were normal. Left atrial appendage was normal. Please see complete echocardiogram report for full details. Please also note that agitated saline co ntrast study was negative for patent foramen ovale. The patient did develop some laryngeal spasm and subsequent asthma exacerbation requiring brief perio d of positive airway pressure with bag-valve mask coupled with nebulizer treatment with albuterol. A t the time of this dictation, she was awake, alert, appropriate with nebulizer treatment. She was he modynamically stable. CONCLUSIONS: 1. Normal complete 2D echocardiogram with no evidence of valvular abnormalities to explain her findi ngs on her MRI or neurologic symptoms. 2. Will report these findings to her neurologist, Dr. Eloise Frey. 3. Ongoing workup for underlying neurologic symptoms and MRI findings. /[id number]/MODL
--- NOTE | 2017-10-22 17:12 | ECHO ---
[email or web address] [address] [address] Main: [phone] Fax: Transesophageal Echocardiography Name: ARMANDO INMAN MR#: [id number] Study Date: 10/22/2017 Study Time: 11:32 AM Date of : 1970 Age: 47 year(s) Height: ( ) Weight: ( ) BSA: Gender: Female Examination: HUSSAIN Indication: Eval Aortic Valve Image Quality: Contrast: Requested by: Richard Ortega Heart Rate: Rhythm: BP: / Procedure Staff Sales Product Specialist: Carlito Zavala RDCS Reading Physician: Richard rOtega MD Requesting Provider: HUSSAIN Exam Details Patient Consent: Risks, alternatives of procedure explained to patient, informed consent obtained. Conclusions: Normal size left ventricle. Normal global systolic LV function. Normal diastolic LV function. The left atrium is normal in size. An agitated saline study was performed and was negative for intracardiac shunting. The mitral valve is normal in appearance and function. The aortic valve is normal in appearance and function. The tricuspid valve is normal in appearance and function. Measurements: Chambers Valvular Assessment AV/MV Valvular Assessment TV/PV Normal Normal Normal Name Value Range Name Value Range Name Value Range AV Vmax: 1.66 m/s (1 m/s-1.7 m/s) AV maxP mmHg ( - ) Additional Measurements: Findings: Left Ventricle: Normal size left ventricle. No LV hypertrophy. Normal global systolic LV function. No regional wall Patient: ARMANDO INMAN Study Date: 10/22/2017 Page 1 of 2 11:32 AM motion abnormality. Normal diastolic LV function. Right Ventricle: Normal size right ventricle. Left Atrium: The left atrium is normal in size. An agitated saline study was performed and was negative for intracardiac shunting. Right Atrium: The right atrium is normal in size. Mitral Valve: The mitral valve is normal in appearance and function. Aortic Valve: The aortic valve is normal in appearance and function. Tricuspid Valve: The tricuspid valve is normal in appearance and function. Pulmonic Valve: The pulmonic valve is normal in appearance and function. Aorta: The aorta is normal. Pericardium: No pericardial effusion. l1n (No Signature Object) Patient: ARMANDO INMAN Study Date: 10/22/2017 Page 2 of 2 11:32 AM [id number]
== END 2017-10-22 13:35 | disposition home or self-care (01) ==
LOC: FCATH 09:36
PROVIDERS: ATTEND Internal Medicine Cardiovascular Disease
PROC: B246ZZ4 Ultrasonography of Right and Left Heart, Transesophageal (ICD-10-PCS; principal; 2017-10-22)
DX: R42 Dizziness and giddiness (principal); R94.02 Abnormal brain scan; R20.2 Paresthesia of skin; R47.81 Slurred speech; G43.109 Migraine with aura, not intractable, without status migrainosus; F17.210 Nicotine dependence, cigarettes, uncomplicated; J45.909 Unspecified asthma, uncomplicated; Z96.641 Presence of right artificial hip joint
CPT/HCPCS: J2704

== ENCOUNTER → 2017-10-25 | Outpatient (CLI) | payer BC ==
--- NOTE | 2017-10-22 11:32 | PDANEPAE ---
ANE History of Present Illness 47 yo female with neurologic symptoms possibly related to a CVA. Evaluating for any source of emboli from heart. ANE Past Medical History - Cardiovascular History Hx Hypertension: No Hx Arrhythmias: No Hx Chest Pain: No Hx Coronary Artery / Peripheral Vascular Disease: No Hx CHF / Valvular Disease: No Hx Palpitations: No - Pulmonary History Hx COPD: No Hx Asthma/Reactive Airway Disease: No Hx Recent Upper Respiratory Infection: No Hx Oxygen in Use at Home: No Hx Sleep Apnea: No Pulmonary History Comment: current smoker, 30+ pack years, chronic cough - Neurologic History Hx Cerebrovascular Accident: No Hx Seizures: No Hx Dementia: No - Endocrine History Hx Diabetes: No Hypothyroid: No - Renal History Hx Renal Disorders: No - Liver History Hx Hepatic Disorders: No - Neurological & Psychiatric Hx Hx Neurological and Psychiatric Disorders: Yes - Cancer History Hx Cancer: No - Congenital Disorder History Hx Congenital Disorders: No - GI History GERD: no Hx Gastrointestinal Disorders: No - Other Health History Other Health History: wears contacts - Chronic Pain History Chronic Pain: Yes (right hip) - Surgical History Prior Surgeries: na ANE Review of Systems Review of Systems: - Systems Constitutional: Reports: no symptoms Respiratory: Reports: cough (chronic) ANE Patient History - Allergies Allergies/Adverse Reactions: No Known Allergies Allergy (Verified 10/21/17 17:12) - Home Medications Home Medications: Aspirin 81mg (*) 81 mg PO DAILY 10/08/17 [Last Taken Unknown] Atorvastatin Calcium 80 mg PO DAILY 10/21/17 [Last Taken Unknown] - NPO status NPO Status: no food or drink >8 hours - Anes Hx Anes Hx: no prior problems - Smoking Hx Smoking Status: Current every day smoker Marijuana use: Yes - Alcohol Use Alcohol Use: Occasionally (2-3 / week) - Family Anes Hx Family Anes Hx: neg - N/A Family Hx Anesthesia Complications: none ANE Labs/Vital Signs - Vital Signs Vital Signs: reviewed preoperatively; see RN documention for details ANE Physical Exam - Airway Neck exam: FROM Mallampati Score: Class 2 Mouth exam: normal dental/mouth exam - Pulmonary Pulmonary: other (coarse BS) - Cardiovascular Cardiovascular: regular rate and rhythym - ASA Status ASA Status: III ANE Anesthesia Plan Anesthesia Plan: GA with mask Total IV Anesthesia: Yes
--- NOTE | 2017-10-22 12:10 | POSTANESTH ---
Post Anesthetic Evaluation Cardiovascular Status: Normal, Stable Respiratory Status: Other, See Comment (Pt had mild laryngospasm which broke with PPV, then bronchospasm improved after Duoneb treatment.) Level of Consciousness/Mental Status: Can Participate in Eval, Alert and Oriented Pain Control: Adequate, Prn Tx Ordered Nausea/Vomiting Control: Adequate, Prn Tx Ordered Complications Possibly Related to Anesthesia: None Noted
[~2017-10-25] MED LIST changes: -GADOBUTROL 10 ML VIAL IVP ONE; +IPRATROPIUM/ALBUTEROL 3 ML DEYVIAL IH ONE; +LIDOCAINE 1% 300 MG/30 ML SDV ONE
[2017-10-25 09:29] LABS: INR 0.97 (0.83-1.16); PROTIME(PATIENT) 13.1 SEC (12.0-15.0)
== END ==
LOC: FIMAGING 08:14
PROVIDERS: ATTEND Psychiatry & Neurology Neurology
PROC: 009U4ZX Drainage of Spinal Canal, Percutaneous Endoscopic Approach, Diagnostic (ICD-10-PCS; principal; 2017-10-25)
DX: R93.0 Abnormal findings on diagnostic imaging of skull and head, not elsewhere classified (principal)
CPT/HCPCS: 82595-90; 82784-90; 83916-90; 85060-90; 86641-90; 87496-90; 88184-90; 88185-91

== ENCOUNTER 2017-10-28 14:01 | Emergency (ER) | payer BC ==
[2017-10-28] MEDS ORDERED: ONDANSETRON 4 MG/2 ML VIAL IVP ONE (14:58)
[2017-10-28] MEDS ORDERED: NS 1,000 ML IV ONE ×2 (14:58)
--- NOTE | 2017-10-28 14:58 | EDPHY ---
H & P Time Seen by Provider: 10/28/17 14:52 HPI/ROS: CHIEF COMPLAINT: Headache HISTORY OF PRESENT ILLNESS: Patient had lumbar puncture on 10/25/2017 by interventional radiology for investigation of neurologic symptoms. Since then she has had headache which is severe sitting or standing and better lying down. Today was associated with nausea and vomiting when she was get ready to go to court mediation with her ex-. Arrives with headache which is moderate to mild lying down. Some nausea with the pain and the car fumes of getting ready to go to court but minimal now. Not associated with double vision or fever or neck stiffness or new neurologic symptoms. Here requesting blood patch. REVIEW OF SYSTEMS: Eye: no change in vision ENT: no sore throat Cardiac: no chest pain or syncope Pulmonary: no cough or SOB Abdomen: HPI no abdominal pain Musculoskeletal: no back pain Skin: no rash Neuro: HPI Constitutional: no fever : no urinary symptoms A comprehensive 10 point review of systems is otherwise negative aside from elements mentioned in the history of present illness. PAST MEDICAL HISTORY: Right hip replacement, toxic shock Social history: Here with her spouse General Appearance: Alert and conversant, cooperative. Eyes: No scleral icterus. Pupils equal and reactive extraocular motion intact ENT, Mouth: Normal mucous membranes. Respiratory: Normal respiratory effort, breath sounds equal, lungs are clear to auscultation. Cardiovascular: Regular rate and rhythm. Gastrointestinal: Abdomen is soft and non tender. Neurological: Alert, face symmetric, normal motor and sensory in extremities. Normal speech and normal [id number] bilaterally. Skin: Warm and dry, no rashes. Musculoskeletal: No peripheral edema. Psychiatric: Not agitated. Emergency Department course/MDM: Discussed with interventional radiology Dr. Lee will perform blood patch. IV normal saline 2 L and Zofran 4 mg IV. 1520: to IR. 1605: back from IR, stable to discharge after lying down for time recommended by IR. Smoking Status: Current every day smoker Constitutional: Initial Vital Signs Temperature (C) 36.3 C 10/28/17 14:02 Heart Rate 108 H 10/28/17 14:02 Respiratory Rate 18 10/28/17 14:02 Blood Pressure 107/77 10/28/17 14:02 O2 Sat (%) 99 10/28/17 14:02 O2 Delivery Mode Room Air Allergies/Adverse Reactions: No Known Allergies Allergy (Verified 10/21/17 17:12) Home Medications: Medication Instructions Recorded Aspirin 81mg (*) 81 mg PO DAILY 10/08/17 Atorvastatin Calcium 80 mg PO DAILY 10/21/17 Medical Decision Making - Diagnostics Imaging Results: Imaging Impressions Lumbar Puncture 10/28/17 14:59 Impression: Successful L2-L3 epidural blood patch, as above. Consult/Admit Bed Type: [place] [address] - Data Points Medications Given: Discontinued Medications Sodium Chloride (Ns) 1,000 mls @ 0 mls/hr IV EDNOW ONE; Wide Open PRN Reason: Protocol Stop: 10/28/17 14:59 Last Admin: 10/28/17 15:12 Dose: 1,000 mls Sodium Chloride (Ns) 1,000 mls @ 0 mls/hr IV EDNOW ONE; Wide Open PRN Reason: Protocol Stop: 10/28/17 14:59 Last Admin: 10/28/17 15:13 Dose: 1,000 mls Ondansetron HCl (Zofran) 4 mg IVP EDNOW ONE Stop: 10/28/17 14:59 Last Admin: 10/28/17 15:12 Dose: 4 mg Departure - Departure Disposition: Home, Routine, Self-Care Clinical Impression: Spinal headache Condition: Good Instructions: Epidural Blood Patch (DC) Referrals: Timur Garner MD [Primary Care Provider] - As per Instructions Stand Alone Forms: Work Excuse
[2017-10-28] MEDS ORDERED: IOPAMIDOL (ISOVUE-M 300) 15 ML VIAL ONE (16:01)
[2017-10-28] MEDS ORDERED: LIDOCAINE 1% 300 MG/30 ML SDV ONE (16:01)
[2017-10-28 16:07] VITALS: O2SAT 96
[2017-10-28 17:06] VITALS: BP 129/86; PULSE 84; RESP 15; TEMP 98.1
== END 2017-10-28 17:06 | disposition home or self-care (01) ==
DX: G97.1 Other reaction to spinal and lumbar puncture (principal); F17.200 Nicotine dependence, unspecified, uncomplicated; E86.9 Volume depletion, unspecified; Z79.82 Long term (current) use of aspirin
CPT/HCPCS: 96374; J2405; Q9967